=== PATIENT | female | born 1980 | race Caucasian/White ===

== ENCOUNTER 2021-06-22 11:58 | Emergency (ER) | payer OTHER ==
--- NOTE | 2021-06-22 12:52 | EDM.PDOC ---
ED HPI GENERAL MEDICAL PROBLEM - General Chief Complaint: [employer]IATION MECH[employer]IC Problem Stated Complaint: MEDICAL VIA [facility] Time Seen by Provider: 06/22/21 12:30 Source of Information: Reports: Patient, Family History Limitations: Reports: No Limitations - History of Present Illness INITIAL COMMENTS - FREE TEXT/NARRATIVE: 40-year-old female, 2 para 1, who is likely going through a miscarriage. She is roughly 12 weeks gestation, had some spotting 2 weeks ago which stopped but then redeveloped some bleeding over the past 12 to 24 hours. She has had significant cramping over the past 6 to 7 hours. She did have a test on Tuesday which she was starting to spot and it was "positive". No fevers or chills, no nausea or vomiting. Today when coming into the hospital she fainted on the way to the car. She has been having heavy clots and bleeding for the past 6 hours. Her other was a normal vaginal , 5-year-old. Onset: Gradual (Heavy bleeding started fairly suddenly about 6 hours ago) Duration: Hour(s): (Heaviest bleeding and clots has been for last 5 to 6 hours) Location: Reports: Other (Vaginal bleeding) Associated Symptoms: Reports: Syncope (One episode of syncope prior to coming), Other (Mild lower abdominal cramping) Lower Pelvic Pain Score (Numeric/FACES): 3 - Related Data Allergies Allergy/AdvReac Type Severity Reaction Status Date / Time No Known Allergies Allergy Verified 06/22/21 12:13 Home Meds: Home Meds NK [No Known Home Meds] 06/22/21 [History] Past Medical History [employer]IATION MECH[employer]IC History: Reports: Social & Family History - Tobacco Use Tobacco Use Status *Q: Never Tobacco User - Caffeine Use Caffeine Use: Reports: None - Recreational Drug Use Recreational Drug Use: No ED ROS GENERAL - Review of Systems Review Of Systems: See Below Constitutional: Denies: Fever, Chills HEENT: Reports: No Symptoms Respiratory: Denies: Shortness of Breath Cardiovascular: Denies: Chest Pain GI/Abdominal: Denies: Nausea, Vomiting Musculoskeletal: Reports: No Symptoms Skin: Denies: Pallor Neurological: Reports: Syncope ED EXAM - Physical Exam Exam: See Below Exam Limited By: No Limitations General Appearance: Alert, No Apparent Distress Eye Exam: Bilateral Eye: Normal Inspection Head: Atraumatic Respiratory/Chest: Lungs Clear Cardiovascular: Regular Rate, Rhythm. No: Tachycardia GI/Abdominal Exam: Soft, Other (Mild discomfort with palpation of the lower abdomen, feels increase of vaginal bleeding with pressure to the lower abdomen) Extremities: Normal Inspection Neurological: Alert, Oriented Psychiatric: Normal Affect, Normal Mood Skin Exam: Warm, Dry Course - Vital Signs Last Recorded V/S: Last Vital Signs Temp 97.7 F 06/22/21 12:10 Pulse 49 L 06/22/21 13:01 Resp 10 L 06/22/21 13:01 BP 102/54 L 06/22/21 13:01 Pulse Ox 100 06/22/21 13:01 - Orders/Labs/Meds Orders: Active Orders 24 hr Category Date Time Status ABO/RH TYPE [BBK] Stat Lab 06/22/21 13:51 Results PATIENT RETYPE [BBK] Stat Lab 06/22/21 13:51 Results Labs: Laboratory Tests 06/22/21 06/22/21 06/22/21 Range/Units 12:50 12:50 13:51 WBC 12.8 H (4.5-11.0) K/uL RBC 3.96 (3.30-5.50) M/uL Hgb 12.6 (12.0-15.0) g/dL Hct 36.1 (36.0-48.0) % MCV 91 (80-98) fL MCH 32 H (27-31) pg MCHC 35 (32-36) % Plt Count 204 (150-400) K/uL Neut % (Auto) 85.8 H (36-66) % Lymph % (Auto) 9.1 L (24-44) % [place] % (Auto) 4.7 (2-6) % Eos % (Auto) 0.2 L (2-4) % Baso % (Auto) 0.2 (0-1) % Sodium 139 L (140-148) mmol/L Potassium 4.1 (3.6-5.2) mmol/L Chloride 104 (100-108) mmol/L Carbon Dioxide 25 (21-32) mmol/L Anion Gap 14.1 H (5.0-14.0) mmol/L BUN 12 (7-18) mg/dL Creatinine 0.8 (0.6-1.0) mg/dL Est Cr Clr Drug Dosing 70.54 mL/min Estimated GFR (MDRD) > 60 (>60) Glucose 88 (74-106) mg/dL Calcium 8.4 L (8.5-10.1) mg/dL HCG, Quant 3437 H (0-6) mIU/mL Blood Type O POSITIVE Meds: Medications Discontinued Medications Generic Name Dose Route Start Last Admin Trade Name Mervin PRN Reason Stop Dose Admin Sodium Chloride 1,000 mls @ 1,000 mls/hr 06/22/21 14:00 06/22/21 13:54 Normal Saline IV 1,000 mls/hr ASDIRECTED PLACIDO Administration Ketorolac Tromethamine 15 mg 06/22/21 13:51 06/22/21 13:59 Ketorolac 30 Mg/Ml Sdv IVPUSH 06/22/21 13:52 15 mg ONETIME ONE Administration - Re-Assessments/Exams Free Text/Narrative Re-Assessment/Exam: 06/22/21 14:53 Hemoglobin returned 12.6, quantitative hCG 3400. Bedside ultrasound showed intrauterine components, this was confirmed with a formal ultrasound. Vitals remained stable, after the formal ultrasound revealed no viable , the patient was given 15 mg of IV Toradol and 1 L of normal saline. She will allow this to spontaneously abort over the next 24 hours, and return if she feels she is bleeding too heavily or develops more symptoms. Blood typing was done and the patient is O+. Departure - Departure Time of Disposition: 15:24 Disposition: Home, Self-Care 01 Clinical Impression: Incomplete - Discharge Information Instructions: Incomplete Miscarriage Referrals: PCP,None [Primary Care Provider] - Forms: ED Department Discharge Care Plan Goals: Stay hydrated, increase activity as tolerated, and use anti-inflammatory such as ibuprofen or naproxen for any pain. Return anytime if you feel you are bleeding too heavily, or consider rechecking in 12 to 24 hours if bleeding is not slowing down. Sepsis Event Note (ED) - Evaluation Sepsis Screening Result: No Definite Risk - Focused Exam Vital Signs: Vital Signs Temp Pulse Resp BP Pulse Ox 06/22/21 13:01 49 L 10 L 102/54 L 100 06/22/21 12:10 97.7 F 52 L 12 103/56 L 100 - My Orders Last 24 Hours: My Active Orders 06/22/21 13:51 ABO/RH TYPE [BBK] Stat PATIENT RETYPE [BBK] Stat - Assessment/Plan Last 24 Hours: My Active Orders 06/22/21 13:51 ABO/RH TYPE [BBK] Stat PATIENT RETYPE [BBK] Stat
[2021-06-22] MEDS ORDERED: Ketorolac 30 MG/ML SDV IVPUSH ONE (13:51)
[2021-06-22] MEDS ORDERED: Sodium Chloride 0.9% 1,000 ML IV SCH (14:00)
--- NOTE | 2021-06-22 14:07 | US ---
INDICATION: 12 wk heavy bleeding COMPARISON: None FINDINGS: The uterine cavity of the uterus is heterogeneous and somewhat hyperechoic which is likely blood. No fluid collection is identified. There is no heart activity Other findings: None. IMPRESSION: No evidence of viable intrauterine . Endometrial cavity is echogenic and heterogeneous which likely represents blood and clot
== END 2021-06-22 15:25 | disposition home or self-care (01) ==
LOC: JP.ED 11:58
DX: O03.4 Incomplete spontaneous abortion without complication (principal)
CPT/HCPCS: 36415; 76801; 80048; 84702; 85025; 86900; 86901; 96374; 99285; J1885; J7030